=== PATIENT | male | born 1950 | race Caucasian/White ===

== ENCOUNTER → 2016-12-25 | Outpatient (REF) | payer MEDICARE ==
[2016-12-25 12:21] LABS: ALKALINE PHOSPHATASE 60 U/L (45-117); ALT/SGPT 46 U/L (12-78); AST/SGOT 22 U/L (15-37); BILIRUBIN,TOTAL 0.6 MG/DL (0.2-1.0); BLOOD UREA NITROGEN 17 MG/DL (7-18); CALCIUM LEVEL 8.5 MG/DL (8.8-10.2); CARBON DIOXIDE LEVEL 27 MEQ/L (21-32); CHLORIDE LEVEL 103 MEQ/L (98-107); CREATININE FOR GFR 0.92 MG/DL (0.70-1.30); POTASSIUM SERUM 4.1 MEQ/L (3.5-5.1); TOTAL PROTEIN 7.1 GM/DL (6.4-8.2); TRIGLYCERIDES LEVEL 385 MG/DL (<150)
[2016-12-25 12:25] LABS: GLUCOSE, FASTING 149 MG/DL (80-110)
[2016-12-25 22:17] LABS: ALBUMIN 3.8 GM/DL (3.2-5.2); ALBUMIN/GLOBULIN RATIO 1.15 (1.00-1.93); ANION GAP 9 MEQ/L (8-16); SODIUM LEVEL 139 MEQ/L (136-145)
[2016-12-25 22:19] LABS: CHOLESTEROL LEVEL 190 MG/DL (<200)
== END ==
LOC: M SFHCCLAY 07:55
PROVIDERS: ATTEND Family Medicine
DX: I10 Essential (primary) hypertension (principal); E11.9 Type 2 diabetes mellitus without complications; E78.2 Mixed hyperlipidemia; E03.9 Hypothyroidism, unspecified
CPT/HCPCS: 80053; 80061; 83036; 84443; G0463

== ENCOUNTER 2017-11-21 06:42 | Day surgery (SDC) | payer MEDICARE ==
[~2017-11-21 06:42] MED LIST: ACETAMINOPHEN 325 MG TAB PO
[2017-11-21] MEDS ORDERED: PHENYLEPHRINE 2.5% OPHTH SOL 2ML As Ordered (06:50)
[2017-11-21] MEDS ORDERED: TROPICAMIDE 1% OPHTH SOLN 2ML As Ordered (06:50)
[2017-11-21] MEDS ORDERED: CYCLOPENTOLATE 2% OPHTH SOLN 2ML BTL As Ordered (06:50)
[2017-11-21] MEDS ORDERED: OFLOXACIN 0.3 % (OCUFLOX) OPTH SOL 5ML As Ordered (06:50)
[2017-11-21] MEDS ORDERED: PHENYLEPHRINE HCL 10 % OPHTH. SOL 5ML OS (07:00)
[2017-11-21] MEDS ORDERED: LIDOCAINE 1% MDV 20ML VIAL SQ (07:00)
[2017-11-21] MEDS ORDERED: PROPARACAINE 0.5% OPHTH SOL 15ML OS (07:01)
[2017-11-21] MEDS ORDERED: MIDAZOLAM INJ 2 MG/2 ML VIAL (J2250) As Ordered (07:12)
[2017-11-21] MEDS: LIDOCAINE 3.5 % 1ML OPHTH TOPICAL GEL OU (07:13)
[2017-11-21] MEDS ORDERED: fentaNYL 100 MCG/2 ML INJECTION (J3010) As Ordered (07:13)
[2017-11-21] MEDS: OFLOXACIN 0.3 % (OCUFLOX) OPTH SOL 5ML OS (07:14)
[2017-11-21] MEDS: PHENYLEPHRINE 2.5% OPHTH SOL 2ML OS (07:15)
[2017-11-21] MEDS: TROPICAMIDE 1% OPHTH SOLN 2ML OS (07:15)
[2017-11-21] MEDS: CYCLOPENTOLATE 2% OPHTH SOLN 2ML BTL OS (07:15)
[2017-11-21] MEDS: ACETYLCHOLINE OPHTH SOLN 1% 2ML (MIOCHOL-E) As Ordered (07:33)
[2017-11-21 07:34] LABS: BEDSIDE GLUCOSE 171 MG/DL (80-115)
[2017-11-21] MEDS: POVIDONE-IODINE 5% OPHTH PREP SOL 30ML As Ordered (08:33)
[2017-11-21] MEDS: LIDOCAINE 1% SDV 5 ML VIAL As Ordered (08:36)
[2017-11-21] MEDS: HEALON DUET (HEALON 10MG/ML 0.55ML & HEALON ENDOCOAT 30MG/ML 0.85ML) As Ordered (08:40)
[2017-11-21] MEDS: CEFUROXIME 1MG/0.1ML INTRACAMERAL INJ As Ordered (08:41)
[2017-11-21] MEDS: BALANCED SALT IRRIGATION SOLUTION 500ML BAG (FOR OR EYE MACHINE) As Ordered (08:41)
[2017-11-21] MEDS ORDERED: TRIMETHOBENZAMIDE 300 MG CAP PO (09:15)
[2017-11-21] MEDS: KETOROLAC 0.5% OPHTH SOLN OS (09:15)
[2017-11-21] MEDS: AcetaZOLAMIDE 500 MG ER CAP PO (09:15)
== END 2017-11-21 09:35 | disposition home or self-care (01) ==
LOC: M SDC 06:42
DX: H25.12 Age-related nuclear cataract, left eye (principal); I10 Essential (primary) hypertension; E78.2 Mixed hyperlipidemia; E03.9 Hypothyroidism, unspecified; E11.9 Type 2 diabetes mellitus without complications; H40.9 Unspecified glaucoma; Z79.899 Other long term (current) drug therapy; Z88.8 Allergy status to other drugs, medicaments and biological substances
CPT/HCPCS: 66984

== ENCOUNTER → 2017-12-25 | Outpatient (REF) | payer MEDICARE ==
[2017-12-25 11:44] LABS: ALBUMIN/GLOBULIN RATIO 1.05 (1.00-1.93); ALKALINE PHOSPHATASE 73 U/L (45-117); ALT/SGPT 51 U/L (12-78); ANION GAP 7 MEQ/L (8-16); AST/SGOT 27 U/L (7-37); BILIRUBIN,TOTAL 0.4 MG/DL (0.2-1.0); BLOOD UREA NITROGEN 17 MG/DL (7-18); CARBON DIOXIDE LEVEL 27 MEQ/L (21-32); CHLORIDE LEVEL 106 MEQ/L (98-107); CREATININE FOR GFR 1.01 MG/DL (0.70-1.30); GLOMERULAR FILTRATION RATE > 60.0 (>49); GLUCOSE, FASTING 181 MG/DL (70-100); POTASSIUM SERUM 4.2 MEQ/L (3.5-5.1); SODIUM LEVEL 140 MEQ/L (136-145); TOTAL PROTEIN 7.8 GM/DL (6.4-8.2)
[2017-12-25 11:55] LABS: ESTIMATED AVERAGE GLUCOSE 157 MG/DL (60-110); HEMOGLOBIN A1c 7.1 %
== END ==
LOC: M SFHCCLAY 07:51
DX: E11.9 Type 2 diabetes mellitus without complications (principal); E03.9 Hypothyroidism, unspecified
CPT/HCPCS: 84443

== ENCOUNTER → 2018-06-27 | Outpatient (REF) | payer MEDICARE ==
[2018-06-27 12:15] LABS: ALBUMIN 3.9 GM/DL (3.2-5.2); ALBUMIN/GLOBULIN RATIO 1.15 (1.00-1.93); ALKALINE PHOSPHATASE 67 U/L (45-117); ALT/SGPT 37 U/L (12-78); ANION GAP 7 MEQ/L (8-16); AST/SGOT 19 U/L (7-37); BILIRUBIN,TOTAL 0.6 MG/DL (0.2-1.0); BLOOD UREA NITROGEN 24 MG/DL (7-18); CARBON DIOXIDE LEVEL 27 MEQ/L (21-32); CHLORIDE LEVEL 106 MEQ/L (98-107); CHOLESTEROL LEVEL 208 MG/DL (<200); CHOLESTEROL RISK RATIO 5.073 (<5); CREATININE FOR GFR 0.92 MG/DL (0.70-1.30); GLOMERULAR FILTRATION RATE > 60.0 (>49); GLUCOSE, FASTING 159 MG/DL (70-100); HDL CHOLESTEROL 41 MG/DL (>40); LDL CHOLESTEROL 111 MG/DL (<100); NON-HDL-C 167 MG/DL; POTASSIUM SERUM 4.2 MEQ/L (3.5-5.1); SODIUM LEVEL 140 MEQ/L (136-145); TOTAL PROTEIN 7.3 GM/DL (6.4-8.2); TRIGLYCERIDES LEVEL 280 MG/DL (<150)
[2018-06-27 12:48] LABS: ESTIMATED AVERAGE GLUCOSE 163 MG/DL (60-110); HEMOGLOBIN A1c 7.3 %
[2018-06-27 12:51] LABS: CREATININE, URINE 53.4 MG/DL; MALB URINE SIEMENS 5.1 MG/L
[2018-06-27 13:26] LABS: MAU/CREAT RATIO 9.5 MCG/MG (0.0-30.0)
== END ==
LOC: M SFHCCLAY 07:40
DX: E78.2 Mixed hyperlipidemia (principal); I10 Essential (primary) hypertension; E11.9 Type 2 diabetes mellitus without complications; E03.9 Hypothyroidism, unspecified; Z23 Encounter for immunization
CPT/HCPCS: 84443

== ENCOUNTER → 2018-12-16 | Outpatient (REF) | payer MEDICARE ==
[~2018-12-16] MED LIST changes: -ACETAMINOPHEN 325 MG TAB PO; +APPL188C PO; +DORZ2SOL5 OD; +LATA0.0013 OD; +LEVO150T42 PO; +LOSA100T5 PO; +MULT1TAB10 PO; +SIMV20TA2 PO
[2018-12-16 12:29] LABS: ALBUMIN 3.6 GM/DL (3.2-5.2); ALT/SGPT 35 U/L (12-78); BILIRUBIN,TOTAL 0.8 MG/DL (0.2-1.0); BLOOD UREA NITROGEN 16 MG/DL (7-18); CARBON DIOXIDE LEVEL 28 MEQ/L (21-32); CHLORIDE LEVEL 107 MEQ/L (98-107); CREATININE FOR GFR 0.82 MG/DL (0.70-1.30); GLOMERULAR FILTRATION RATE > 60.0 (>49); GLUCOSE, FASTING 168 MG/DL (70-100); SODIUM LEVEL 140 MEQ/L (136-145); THYROID STIMULATING HORMONE 0.009 uIU/ML (0.358-3.740); TOTAL PROTEIN 6.8 GM/DL (6.4-8.2)
[2018-12-16 14:36] LABS: HEMOGLOBIN A1c 7.2 %
== END ==
LOC: M SFHCCLAY 07:21
PROVIDERS: ATTEND Family Medicine
DX: E11.9 Type 2 diabetes mellitus without complications (principal); E03.9 Hypothyroidism, unspecified
CPT/HCPCS: 80053; 83036; 84443; G0463

== ENCOUNTER → 2019-06-17 | Outpatient (REF) | payer MEDICARE ==
[2019-06-17 11:48] LABS: ALBUMIN 3.7 GM/DL (3.2-5.2); ALT/SGPT 54 U/L (12-78); BILIRUBIN,TOTAL 0.7 MG/DL (0.2-1.0); BLOOD UREA NITROGEN 21 MG/DL (7-18); CARBON DIOXIDE LEVEL 28 MEQ/L (21-32); CHLORIDE LEVEL 105 MEQ/L (98-107); CHOLESTEROL LEVEL 211 MG/DL (<200); CHOLESTEROL RISK RATIO 4.795 (<5); CREATININE FOR GFR 0.92 MG/DL (0.70-1.30); GLOMERULAR FILTRATION RATE > 60.0 (>42); GLUCOSE, FASTING 192 MG/DL (70-100); HDL CHOLESTEROL 44 MG/DL (>40); LDL CHOLESTEROL 90 MG/DL (<100); NON-HDL-C 167 MG/DL; POTASSIUM SERUM 4.1 MEQ/L (3.5-5.1); SODIUM LEVEL 139 MEQ/L (136-145); THYROID STIMULATING HORMONE 0.495 uIU/ML (0.358-3.740); TOTAL PROTEIN 7.2 GM/DL (6.4-8.2); TRIGLYCERIDES LEVEL 383 MG/DL (<150)
[2019-06-17 12:10] LABS: CREATININE, URINE 58.3 MG/DL; MAU/CREAT RATIO 8.5 MCG/MG (0.0-30.0)
[2019-06-17 13:30] LABS: HEMOGLOBIN A1c 7.2 %
== END ==
LOC: M SFHCCLAY 07:34
PROVIDERS: ATTEND Family Medicine
DX: E11.9 Type 2 diabetes mellitus without complications (principal); E03.9 Hypothyroidism, unspecified; Z23 Encounter for immunization
CPT/HCPCS: 80053; 80061; 82043; 83036; 84443; 90682; G0008; G0463

== ENCOUNTER → 2019-12-18 | Outpatient (REF) | payer MEDICARE ==
[~2019-12-18] MED LIST changes: -SIMV20TA2 PO; +SIMV20TA22 PO
[2019-12-18 12:00] LABS: ALBUMIN 3.4 GM/DL (3.2-5.2); ALT/SGPT 33 U/L (12-78); BILIRUBIN,TOTAL 0.5 MG/DL (0.2-1.0); BLOOD UREA NITROGEN 17 MG/DL (7-18); CALCIUM LEVEL 9.1 MG/DL (8.8-10.2); CARBON DIOXIDE LEVEL 30 MEQ/L (21-32); CHLORIDE LEVEL 105 MEQ/L (98-107); CREATININE FOR GFR 0.82 MG/DL (0.70-1.30); GLOMERULAR FILTRATION RATE > 60.0 (>42); GLUCOSE, FASTING 253 MG/DL (70-100); POTASSIUM SERUM 3.9 MEQ/L (3.5-5.1); SODIUM LEVEL 140 MEQ/L (136-145); TOTAL PROTEIN 7.1 GM/DL (6.4-8.2)
== END ==
LOC: M SFHCCLAY 07:25
PROVIDERS: ATTEND Family Medicine
DX: E11.9 Type 2 diabetes mellitus without complications (principal)
CPT/HCPCS: 80053; 83036; G0463

== ENCOUNTER → 2020-03-09 | Outpatient (REF) | payer MEDICARE ==
[2020-03-09 11:36] LABS: BASO # 0.1 10^3/uL (0.0-0.2); BASO % 1.3 % (0.0-1.0); EOS # 0.3 10^3/uL (0.0-0.5); EOS % 6.3 % (0.0-3.0); HEMATOCRIT 39.7 % (42.0-52.0); HEMOGLOBIN 13.5 g/dl (13.5-17.5); LYMPH # 1.6 10^3/uL (1.5-5.0); LYMPH % 33.9 % (24.0-44.0); MEAN CORPUSCULAR HEMOGLOBIN 34.4 pg (27.0-33.0); MEAN CORPUSCULAR VOLUME 101.3 fl (80.0-96.0); MONO # 0.8 10^3/uL (0.0-0.8); MONO % 15.7 % (0.0-5.0); NEUTROPHILS % 42.6 % (36.0-66.0); PLATELET COUNT, AUTOMATED 186 10^3/uL (150-450); RED BLOOD COUNT 3.92 10^6/uL (4.30-6.10); WHITE BLOOD COUNT 4.8 10^3/uL (4.0-10.0)
[2020-03-09 12:53] LABS: HEMOGLOBIN A1c 7.7 %
[2020-03-09 13:06] LABS: ALBUMIN 3.6 GM/DL (3.2-5.2); ALT/SGPT 43 U/L (12-78); BILIRUBIN,TOTAL 0.4 MG/DL (0.2-1.0); BLOOD UREA NITROGEN 18 MG/DL (7-18); CALCIUM LEVEL 9.4 MG/DL (8.8-10.2); CARBON DIOXIDE LEVEL 26 MEQ/L (21-32); CHLORIDE LEVEL 107 MEQ/L (98-107); CHOLESTEROL LEVEL 181 MG/DL (<200); CHOLESTEROL RISK RATIO 5.656 (<5); CREATININE FOR GFR 0.77 MG/DL (0.70-1.30); GLOMERULAR FILTRATION RATE > 60.0 (>42); GLUCOSE, FASTING 156 MG/DL (70-100); HDL CHOLESTEROL 32 MG/DL (>40); LIPASE 129 U/L (73-393); MAGNESIUM LEVEL 2.3 MG/DL (1.8-2.4); NON-HDL-C 149 MG/DL; POTASSIUM SERUM 4.5 MEQ/L (3.5-5.1); SODIUM LEVEL 137 MEQ/L (136-145); THYROID STIMULATING HORMONE < 0.005 uIU/ML (0.358-3.740); TRIGLYCERIDES LEVEL 509 MG/DL (<150)
[2020-03-09 14:05] LABS: TOTAL T3 119.7 NG/DL (60.0-181.0)
== END ==
LOC: M SFHCCLAY 07:35
PROVIDERS: ATTEND Family Medicine
DX: R63.4 Abnormal weight loss (principal); I10 Essential (primary) hypertension; E11.9 Type 2 diabetes mellitus without complications; E78.2 Mixed hyperlipidemia

== ENCOUNTER → 2020-06-08 | Outpatient (REF) | payer MEDICARE ==
[2020-06-08 12:53] LABS: FREE T4 1.03 NG/DL (0.76-1.46); THYROID STIMULATING HORMONE 0.473 uIU/ML (0.358-3.740)
== END ==
LOC: M SFHCCLAY 11:13
PROVIDERS: ATTEND Family Medicine
DX: E03.9 Hypothyroidism, unspecified (principal)

== ENCOUNTER → 2020-07-05 | Outpatient (REF) | payer MEDICARE | LOC: M SFHCCLAY 08:16 | PROVIDERS: ATTEND Family Medicine | DX: E03.9 Hypothyroidism, unspecified (principal) ==

== ENCOUNTER → 2020-08-23 | Outpatient (REF) | payer MEDICARE ==
[2020-08-23 13:32] LABS: HEMOGLOBIN A1c 7.3 %
[2020-08-23 13:47] LABS: ALBUMIN 3.9 GM/DL (3.2-5.2); ALT/SGPT 35 U/L (12-78); BILIRUBIN,TOTAL 0.4 MG/DL (0.2-1.0); BLOOD UREA NITROGEN 24 MG/DL (7-18); CALCIUM LEVEL 9.2 MG/DL (8.8-10.2); CARBON DIOXIDE LEVEL 30 MEQ/L (21-32); CHLORIDE LEVEL 105 MEQ/L (98-107); CREATININE FOR GFR 1.07 MG/DL (0.70-1.30); GLOMERULAR FILTRATION RATE > 60.0 (>42); GLUCOSE, FASTING 187 MG/DL (70-100); SODIUM LEVEL 141 MEQ/L (136-145); TOTAL PROTEIN 7.3 GM/DL (6.4-8.2)
== END ==
LOC: M SFHCCLAY 07:59
PROVIDERS: ATTEND Family Medicine
DX: E11.9 Type 2 diabetes mellitus without complications (principal); E03.9 Hypothyroidism, unspecified

== ENCOUNTER → 2020-10-08 | Outpatient (REF) | payer MEDICARE | LOC: M SFHCCLAY 08:42 | PROVIDERS: ATTEND Family Medicine | DX: E03.9 Hypothyroidism, unspecified (principal) ==

== ENCOUNTER → 2020-12-17 | Outpatient (REF) | payer MEDICARE ==
[2020-12-17 11:25] LABS: HEMOGLOBIN A1c 8.4 %
[2020-12-17 11:52] LABS: ALBUMIN 3.7 GM/DL (3.2-5.2); ALT/SGPT 38 U/L (12-78); BILIRUBIN,TOTAL 0.4 MG/DL (0.2-1.0); BLOOD UREA NITROGEN 17 MG/DL (7-18); CALCIUM LEVEL 9.3 MG/DL (8.8-10.2); CARBON DIOXIDE LEVEL 31 MEQ/L (21-32); CHLORIDE LEVEL 102 MEQ/L (98-107); CHOLESTEROL LEVEL 216 MG/DL (<200); CHOLESTEROL RISK RATIO 5.538 (<5); CREATININE FOR GFR 0.93 MG/DL (0.70-1.30); GLOMERULAR FILTRATION RATE > 60.0 (>42); GLUCOSE, FASTING 203 MG/DL (70-100); HDL CHOLESTEROL 39 MG/DL (>40); NON-HDL-C 177 MG/DL; POTASSIUM SERUM 4.1 MEQ/L (3.5-5.1); SODIUM LEVEL 137 MEQ/L (136-145); TOTAL PROTEIN 7.1 GM/DL (6.4-8.2); TRIGLYCERIDES LEVEL 505 MG/DL (<150)
== END ==
LOC: M SFHCCLAY 07:42
PROVIDERS: ATTEND Family Medicine
DX: E78.2 Mixed hyperlipidemia (principal); E11.9 Type 2 diabetes mellitus without complications; E03.9 Hypothyroidism, unspecified
CPT/HCPCS: 80053; 80061; 83036; 84443; G0463

== ENCOUNTER → 2021-06-23 | Outpatient (REF) | payer MEDICARE ==
[2021-06-23 11:25] LABS: BASO # 0.1 10^3/uL (0.0-0.2); BASO % 1.3 % (0.0-1.0); EOS # 0.3 10^3/uL (0.0-0.5); EOS % 5.3 % (0.0-3.0); HEMATOCRIT 38.3 % (42.0-52.0); HEMOGLOBIN 12.8 g/dl (13.5-17.5); LYMPH # 1.6 10^3/uL (1.5-5.0); LYMPH % 29.6 % (24.0-44.0); MEAN CORPUSCULAR HEMOGLOBIN 34.7 pg (27.0-33.0); MEAN CORPUSCULAR HGB CONC 33.4 g/dl (32.0-36.5); MEAN CORPUSCULAR VOLUME 103.8 fl (80.0-96.0); MONO # 0.7 10^3/uL (0.0-0.8); MONO % 12.6 % (2.0-8.0); NEUTROPHILS # 2.8 10^3/uL (1.5-8.5); NEUTROPHILS % 50.8 % (36.0-66.0); PLATELET COUNT, AUTOMATED 211 10^3/uL (150-450); RED BLOOD COUNT 3.69 10^6/uL (4.30-6.10); WHITE BLOOD COUNT 5.5 10^3/uL (4.0-10.0)
[2021-06-23 11:58] LABS: ALBUMIN 3.6 GM/DL (3.2-5.2); ALT/SGPT 43 U/L (12-78); BILIRUBIN,TOTAL 0.7 MG/DL (0.2-1.0); BLOOD UREA NITROGEN 19 MG/DL (7-18); CALCIUM LEVEL 8.9 MG/DL (8.8-10.2); CARBON DIOXIDE LEVEL 29 MEQ/L (21-32); CHLORIDE LEVEL 102 MEQ/L (98-107); CHOLESTEROL LEVEL 143 MG/DL (<200); CHOLESTEROL RISK RATIO 2.803 (<5); CREATININE FOR GFR 0.97 MG/DL (0.70-1.30); FOLATE 13.3 NG/ML (>5.4); GLOMERULAR FILTRATION RATE > 60.0 (>42); GLUCOSE, FASTING 186 MG/DL (70-100); HDL CHOLESTEROL 51 MG/DL (>40); IRON (FE) 139 UG/DL (65-175); LDL CHOLESTEROL 55 MG/DL (<100); NON-HDL-C 92 MG/DL; POTASSIUM SERUM 4.2 MEQ/L (3.5-5.1); SODIUM LEVEL 136 MEQ/L (136-145); TOTAL PROTEIN 7.1 GM/DL (6.4-8.2); TRIGLYCERIDES LEVEL 185 MG/DL (<150); VITAMIN B12 LEVEL 282 PG/ML (247-911)
== END ==
LOC: M SFHCCLAY 08:37
PROVIDERS: ATTEND Family Medicine
DX: D64.9 Anemia, unspecified (principal); E78.2 Mixed hyperlipidemia; E11.9 Type 2 diabetes mellitus without complications; E03.9 Hypothyroidism, unspecified
CPT/HCPCS: 80053; 80061; 82607; 82746; 83036; 83540; 84443; 85025; 90682; G0008; G0463

== ENCOUNTER → 2021-10-25 | Outpatient (REF) | payer MEDICARE ==
[2021-10-25 12:46] LABS: HEMOGLOBIN A1c 8.7 %
[2021-10-25 12:50] LABS: ALBUMIN 3.9 GM/DL (3.2-5.2); ALT/SGPT 40 U/L (12-78); BILIRUBIN,TOTAL 0.8 MG/DL (0.2-1.0); BLOOD UREA NITROGEN 21 MG/DL (7-18); CALCIUM LEVEL 9.5 MG/DL (8.8-10.2); CARBON DIOXIDE LEVEL 27 MEQ/L (21-32); CHLORIDE LEVEL 99 MEQ/L (98-107); GLOMERULAR FILTRATION RATE > 60.0 (>42); GLUCOSE, FASTING 204 MG/DL (70-100); POTASSIUM SERUM 4.3 MEQ/L (3.5-5.1); SODIUM LEVEL 136 MEQ/L (136-145); TOTAL PROTEIN 7.1 GM/DL (6.4-8.2)
== END ==
LOC: M SFHCCLAY 09:20
PROVIDERS: ATTEND Family Medicine
DX: E11.9 Type 2 diabetes mellitus without complications (principal); E03.9 Hypothyroidism, unspecified

== ENCOUNTER → 2021-12-26 | Outpatient (REF) | payer MEDICARE ==
[2021-12-26 11:22] LABS: BASO # 0.1 10^3/uL (0.0-0.2); EOS # 0.2 10^3/uL (0.0-0.5); EOS % 3.8 % (0.0-3.0); HEMATOCRIT 38.9 % (42.0-52.0); HEMOGLOBIN 13.3 g/dl (13.5-17.5); LYMPH # 1.8 10^3/uL (1.5-5.0); LYMPH % 35.4 % (24.0-44.0); MEAN CORPUSCULAR HEMOGLOBIN 34.6 pg (27.0-33.0); MEAN CORPUSCULAR HGB CONC 34.2 g/dl (32.0-36.5); MEAN CORPUSCULAR VOLUME 101.3 fl (80.0-96.0); MONO # 0.6 10^3/uL (0.0-0.8); MONO % 10.6 % (2.0-8.0); NEUTROPHILS # 2.5 10^3/uL (1.5-8.5); NEUTROPHILS % 48.4 % (36.0-66.0); PLATELET COUNT, AUTOMATED 235 10^3/uL (150-450); RED BLOOD COUNT 3.84 10^6/uL (4.30-6.10); WHITE BLOOD COUNT 5.2 10^3/uL (4.0-10.0)
[2021-12-26 11:46] LABS: HEMOGLOBIN A1c 7.8 %
[2021-12-26 12:12] LABS: ALBUMIN 3.7 GM/DL (3.2-5.2); ALT/SGPT 32 U/L (12-78); BILIRUBIN,TOTAL 0.4 MG/DL (0.2-1.0); BLOOD UREA NITROGEN 25 MG/DL (7-18); CALCIUM LEVEL 9.7 MG/DL (8.8-10.2); CARBON DIOXIDE LEVEL 30 MEQ/L (21-32); CHLORIDE LEVEL 100 MEQ/L (98-107); CREATININE FOR GFR 0.96 MG/DL (0.70-1.30); GLOMERULAR FILTRATION RATE > 60.0 (>42); GLUCOSE, FASTING 264 MG/DL (70-100); IRON (FE) 139 UG/DL (65-175); SODIUM LEVEL 137 MEQ/L (136-145); TOTAL PROTEIN 7.3 GM/DL (6.4-8.2)
[2022-01-03 15:20] LABS: VITAMIN B12 LEVEL 409 PG/ML (247-911)
== END ==
LOC: M SFHCCLAY 07:49
PROVIDERS: ATTEND Family Medicine
DX: D64.9 Anemia, unspecified (principal); E03.9 Hypothyroidism, unspecified; E11.9 Type 2 diabetes mellitus without complications

== ENCOUNTER → 2022-06-26 | Outpatient (REF) | payer MEDICARE ==
[2022-06-26 12:12] LABS: BASO % 0.8 % (0.0-1.0); EOS # 0.2 10^3/uL (0.0-0.5); EOS % 4.5 % (0.0-3.0); HEMATOCRIT 40.3 % (42.0-52.0); HEMOGLOBIN 13.5 g/dl (13.5-17.5); LYMPH # 1.5 10^3/uL (1.5-5.0); MEAN CORPUSCULAR HEMOGLOBIN 34.7 pg (27.0-33.0); MEAN CORPUSCULAR HGB CONC 33.5 g/dl (32.0-36.5); MEAN CORPUSCULAR VOLUME 103.6 fl (80.0-96.0); MONO # 0.6 10^3/uL (0.0-0.8); NEUTROPHILS # 2.7 10^3/uL (1.5-8.5); NEUTROPHILS % 52.3 % (36.0-66.0); PLATELET COUNT, AUTOMATED 226 10^3/uL (150-450); RED BLOOD COUNT 3.89 10^6/uL (4.30-6.10); WHITE BLOOD COUNT 5.1 10^3/uL (4.0-10.0)
[2022-06-26 12:50] LABS: HEMOGLOBIN A1c 7.5 %
[2022-06-26 13:09] LABS: BLOOD UREA NITROGEN 21 MG/DL (7-18); CARBON DIOXIDE LEVEL 30 MEQ/L (21-32); CHLORIDE LEVEL 101 MEQ/L (98-107); CREATININE FOR GFR 1.03 MG/DL (0.70-1.30); GLOMERULAR FILTRATION RATE > 60.0 (>42); GLUCOSE, FASTING 277 MG/DL (70-100); POTASSIUM SERUM 4.2 MEQ/L (3.5-5.1); SODIUM LEVEL 136 MEQ/L (136-145)
[2022-06-26 13:10] LABS: ALBUMIN 3.8 GM/DL (3.2-5.2); ALT/SGPT 32 U/L (12-78); BILIRUBIN,TOTAL 0.6 MG/DL (0.2-1.0); CALCIUM LEVEL 9.4 MG/DL (8.8-10.2); CHOLESTEROL LEVEL 161 MG/DL (<200); CHOLESTEROL RISK RATIO 3.096 (<5); HDL CHOLESTEROL 52 MG/DL (>40); IRON (FE) 128 UG/DL (65-175); LDL CHOLESTEROL 74 MG/DL (<100); NON-HDL-C 109 MG/DL; TOTAL PROTEIN 7.3 GM/DL (6.4-8.2); TRIGLYCERIDES LEVEL 177 MG/DL (<150)
[2022-06-26 13:37] LABS: VITAMIN B12 LEVEL 269 PG/ML (247-911)
== END ==
LOC: M SFHCCLAY 07:47
PROVIDERS: ATTEND Family Medicine
DX: E11.9 Type 2 diabetes mellitus without complications (principal); E03.9 Hypothyroidism, unspecified; E78.2 Mixed hyperlipidemia; D64.9 Anemia, unspecified; Z12.5 Encounter for screening for malignant neoplasm of prostate

== ENCOUNTER → 2022-12-29 | Outpatient (REF) | payer MEDICARE ==
[2022-12-29 12:21] LABS: HEMOGLOBIN A1c 8.6 % (4.0-6.0)
[2022-12-29 12:33] LABS: THYROID STIMULATING HORMONE 1.471 uIU/ML (0.55-4.78)
[2022-12-29 12:34] LABS: VITAMIN B12 LEVEL 1107 PG/ML (211-911)
[2022-12-29 12:35] LABS: ALBUMIN 4.2 G/DL (3.2-5.2); ALKALINE PHOSPHATASE 67 U/L (46-116); ALT/SGPT 49 U/L (7.0-40); AST/SGOT 23 U/L (<34); BILIRUBIN,TOTAL 0.5 MG/DL (0.3-1.2); BLOOD UREA NITROGEN 25 MG/DL (9-23); CALCIUM LEVEL 9.8 MG/DL (8.3-10.6); CARBON DIOXIDE LEVEL 29 MMOL/L (20-31); CHLORIDE LEVEL 101 MMOL/L (98-107); CREATININE FOR GFR 0.98 MG/DL (0.70-1.30); GLOMERULAR FILTRATION RATE > 60.0 (>42); GLUCOSE, FASTING 232 MG/DL (74-106); POTASSIUM SERUM 4.3 MMOL/L (3.5-5.1); SODIUM LEVEL 137 MMOL/L (136-145); TOTAL PROTEIN 7.3 G/DL (5.7-8.2)
== END ==
LOC: M SFHCCLAY 07:59
PROVIDERS: ATTEND Family Medicine
DX: I10 Essential (primary) hypertension (principal); E11.9 Type 2 diabetes mellitus without complications; E03.9 Hypothyroidism, unspecified; D64.9 Anemia, unspecified

== ENCOUNTER → 2023-07-02 | Outpatient (REF) | payer MEDICARE ==
[2023-07-02 12:19] LABS: HEMATOCRIT 39.5 % (42.0-52.0); HEMOGLOBIN 13.3 g/dl (13.5-17.5); MEAN CORPUSCULAR HEMOGLOBIN 34.5 pg (27.0-33.0); MEAN CORPUSCULAR HGB CONC 33.7 g/dl (32.0-36.5); MEAN CORPUSCULAR VOLUME 102.6 fl (80.0-96.0); PLATELET COUNT, AUTOMATED 227 10^3/uL (150-450); RED BLOOD COUNT 3.85 10^6/uL (4.30-6.10); WHITE BLOOD COUNT 5.8 10^3/uL (4.0-10.0)
[2023-07-03 05:17] LABS: ALBUMIN 3.9 G/DL (3.2-5.2); ALKALINE PHOSPHATASE 69 U/L (46-116); ALT/SGPT 33 U/L (7.0-40); AST/SGOT 19 U/L (<34); BILIRUBIN,TOTAL 0.6 MG/DL (0.3-1.2); BLOOD UREA NITROGEN 21 MG/DL (9-23); CALCIUM LEVEL 9.4 MG/DL (8.3-10.6); CARBON DIOXIDE LEVEL 30 MMOL/L (20-31); CHLORIDE LEVEL 101 MMOL/L (98-107); CHOLESTEROL LEVEL 157 MG/DL (<200); CHOLESTEROL RISK RATIO 3.07 (<5); CREATININE FOR GFR 0.86 MG/DL (0.70-1.30); GLOMERULAR FILTRATION RATE > 60.0 (>42); GLUCOSE, FASTING 214 MG/DL (74-106); IRON (FE) 149 UG/DL (65-175); LDL CHOLESTEROL 66.2 MG/DL (<100); SODIUM LEVEL 138 MMOL/L (136-145); TOTAL PROTEIN 7.1 G/DL (5.7-8.2); TRIGLYCERIDES LEVEL 199 MG/DL (<150)
[2023-07-03 05:19] LABS: VITAMIN B12 LEVEL 458 PG/ML (211-911)
== END ==
LOC: M SFHCCLAY 08:31
PROVIDERS: ATTEND Family Medicine
DX: E11.9 Type 2 diabetes mellitus without complications (principal); E03.9 Hypothyroidism, unspecified; E78.2 Mixed hyperlipidemia; D64.9 Anemia, unspecified

== ENCOUNTER → 2024-01-01 | Outpatient (REF) | payer MEDICARE ==
[2024-01-01 11:13] LABS: BASO # 0.1 10^3/uL (0.0-0.2); EOS # 0.3 10^3/uL (0.0-0.5); EOS % 4.7 % (0.0-3.0); HEMATOCRIT 39.8 % (42.0-52.0); HEMOGLOBIN 13.4 g/dl (13.5-17.5); LYMPH # 1.8 10^3/uL (1.5-5.0); LYMPH % 31.1 % (24.0-44.0); MEAN CORPUSCULAR HEMOGLOBIN 34.3 pg (27.0-33.0); MEAN CORPUSCULAR HGB CONC 33.7 g/dl (32.0-36.5); MEAN CORPUSCULAR VOLUME 101.8 fl (80.0-96.0); MONO # 0.6 10^3/uL (0.0-0.8); MONO % 11.1 % (2.0-8.0); NEUTROPHILS % 51.9 % (36.0-66.0); PLATELET COUNT, AUTOMATED 251 10^3/uL (150-450); RED BLOOD COUNT 3.91 10^6/uL (4.30-6.10); WHITE BLOOD COUNT 5.8 10^3/uL (4.0-10.0)
[2024-01-01 11:54] LABS: HEMOGLOBIN A1c 8.2 % (4.0-6.0)
[2024-01-01 12:27] LABS: ALKALINE PHOSPHATASE 70 U/L (46-116); ALT/SGPT 27 U/L (7.0-40); AST/SGOT 16 U/L (<34); BILIRUBIN,TOTAL 0.6 MG/DL (0.3-1.2); BLOOD UREA NITROGEN 29 MG/DL (9-23); CARBON DIOXIDE LEVEL 30 MMOL/L (20-31); CHLORIDE LEVEL 100 MMOL/L (98-107); CREATININE FOR GFR 0.92 MG/DL (0.70-1.30); FREE T4 1.39 NG/DL (0.89-1.76); GLOMERULAR FILTRATION RATE > 60.0 (>42); GLUCOSE, FASTING 244 MG/DL (74-106); POTASSIUM SERUM 4.3 MMOL/L (3.5-5.1); PSA SCREENING 0.49 NG/ML (< 4.00); SODIUM LEVEL 136 MMOL/L (136-145); THYROID STIMULATING HORMONE 0.822 uIU/ML (0.55-4.78); TOTAL PROTEIN 7.3 G/DL (5.7-8.2); VITAMIN B12 LEVEL 412 PG/ML (211-911)
[2024-01-01 12:30] LABS: IRON (FE) 96 UG/DL (65-175)
== END ==
LOC: M SFHCCLAY 09:03
PROVIDERS: ATTEND Family Medicine
DX: E11.9 Type 2 diabetes mellitus without complications (principal); D64.9 Anemia, unspecified; E03.9 Hypothyroidism, unspecified; Z12.5 Encounter for screening for malignant neoplasm of prostate; I10 Essential (primary) hypertension
CPT/HCPCS: 80053; 82607; 82746; 83036; 83540; 83735; 84439; 84443; 85025; G0103

== ENCOUNTER → 2024-07-03 | Outpatient (REF) | payer MEDICARE ==
[2024-07-03 12:45] LABS: ALBUMIN 3.6 G/DL (3.2-5.2); ALKALINE PHOSPHATASE 63 U/L (46-116); ALT/SGPT 28 U/L (7.0-40); AST/SGOT 14 U/L (<34); BILIRUBIN,TOTAL 0.5 MG/DL (0.3-1.2); BLOOD UREA NITROGEN 20 MG/DL (9-23); CALCIUM LEVEL 9.9 MG/DL (8.3-10.6); CARBON DIOXIDE LEVEL 29 MMOL/L (20-31); CHLORIDE LEVEL 107 MMOL/L (98-107); CHOLESTEROL LEVEL 161 MG/DL (<200); CHOLESTEROL RISK RATIO 3.64 (<5); CREATININE FOR GFR 0.86 MG/DL (0.70-1.30); GLOMERULAR FILTRATION RATE > 60.0 (>42); GLUCOSE, FASTING 188 MG/DL (74-106); HDL CHOLESTEROL 44.2 MG/DL (>40); IRON (FE) 108 UG/DL (65-175); LDL CHOLESTEROL 87.6 MG/DL (<100); NON-HDL-C 116.8 MG/DL; POTASSIUM SERUM 4.4 MMOL/L (3.5-5.1); SODIUM LEVEL 140 MMOL/L (136-145); TOTAL PROTEIN 6.9 G/DL (5.7-8.2); TRIGLYCERIDES LEVEL 146 MG/DL (<150)
[2024-07-03 12:46] LABS: THYROID STIMULATING HORMONE 0.822 uIU/ML (0.55-4.78)
== END ==
LOC: M SFHCCLAY 08:42
PROVIDERS: ATTEND Family Medicine
DX: E11.9 Type 2 diabetes mellitus without complications (principal); E78.2 Mixed hyperlipidemia; D64.9 Anemia, unspecified; E03.9 Hypothyroidism, unspecified

== ENCOUNTER → 2025-01-02 | Outpatient (REF) | payer MEDICARE ==
[2025-01-02 12:52] LABS: HEMATOCRIT 37.4 % (42.0-52.0); HEMOGLOBIN 12.9 g/dl (13.5-17.5); MEAN CORPUSCULAR HEMOGLOBIN 34.8 pg (27.0-33.0); MEAN CORPUSCULAR HGB CONC 34.5 g/dl (32.0-36.5); MEAN CORPUSCULAR VOLUME 100.8 fl (80.0-96.0); PLATELET COUNT, AUTOMATED 262 10^3/uL (150-450); RED BLOOD COUNT 3.71 10^6/uL (4.30-6.10); WHITE BLOOD COUNT 5.5 10^3/uL (4.0-10.0)
[2025-01-02 12:57] LABS: ALBUMIN 3.9 G/DL (3.2-5.2); BILIRUBIN,TOTAL 0.7 MG/DL (0.3-1.2); CALCIUM LEVEL 9.7 MG/DL (8.3-10.6); CREATININE FOR GFR 0.93 MG/DL (0.70-1.30); GLOMERULAR FILTRATION RATE 85.6 (>42); POTASSIUM SERUM 4.1 MMOL/L (3.5-5.1); TOTAL PROTEIN 7.3 G/DL (5.7-8.2)
[2025-01-02 12:59] LABS: THYROID STIMULATING HORMONE 2.141 uIU/ML (0.55-4.78)
[2025-01-02 13:14] LABS: HEMOGLOBIN A1c 7.6 % (4.0-6.0)
== END ==
LOC: M SFHCCLAY 09:03
PROVIDERS: ATTEND Family Medicine
DX: D64.9 Anemia, unspecified (principal); E11.9 Type 2 diabetes mellitus without complications; E03.9 Hypothyroidism, unspecified

== ENCOUNTER → 2025-06-30 | Outpatient (REF) | payer MEDICARE ==
[2025-06-30 12:44] LABS: CHOLESTEROL LEVEL 150.0 MG/DL (<200); CHOLESTEROL RISK RATIO 3.02 (<5); LDL CHOLESTEROL 77.4 MG/DL (<100); NON-HDL-C 100.4 MG/DL; PLATELET COUNT, AUTOMATED 317 10^3/uL (150-450); TRIGLYCERIDES LEVEL 115.0 MG/DL (<150)
[2025-06-30 12:48] LABS: FREE T4 1.58 NG/DL (0.89-1.76)
[2025-06-30 12:49] LABS: ALT/SGPT 20.0 U/L (7.0-40); AST/SGOT 13.0 U/L (<34); CALCIUM LEVEL 9.7 MG/DL (8.3-10.6); CARBON DIOXIDE LEVEL 29.0 MMOL/L (20-31); CHLORIDE LEVEL 100.0 MMOL/L (98-107); CREATININE FOR GFR 0.91 MG/DL (0.70-1.30); GLOMERULAR FILTRATION RATE 87.4 (>42); IRON (FE) 64.0 UG/DL (65-175); POTASSIUM SERUM 3.9 MMOL/L (3.5-5.1); SODIUM LEVEL 140.0 MMOL/L (136-145)
[2025-06-30 12:50] LABS: VITAMIN B12 LEVEL 249.0 PG/ML (211-911)
[2025-06-30 13:12] LABS: ESTIMATED AVERAGE GLUCOSE 160.0 MG/DL (60-110)
== END ==
LOC: M SFHCCLAY 07:37
PROVIDERS: ATTEND Family Medicine
DX: E11.9 Type 2 diabetes mellitus without complications (principal); E03.9 Hypothyroidism, unspecified; D64.9 Anemia, unspecified; E78.2 Mixed hyperlipidemia